=== PATIENT | male | born 1985 | race Caucasian/White ===

== ENCOUNTER 2020-04-06 05:09 | Emergency (ER) | payer BC, MEDICAID ==
[2020-04-06] MEDS ORDERED: KETOROLAC TROMETHAMINE INJ/PF 30 MG/1 ML SDV IV ONE ×2 (05:39→07:43)
[2020-04-06] MEDS ORDERED: METOCLOPRAMIDE HCL INJ/PF 10 MG/2 ML SDV IV ONE (05:39)
[2020-04-06] MEDS ORDERED: NORMAL SALINE 1000 ML 1,000 ML IV ONE ×2 (05:40→07:45)
--- NOTE | 2020-04-06 05:43 | ER Document Report ---
ED General - General TRAVEL OUTSIDE OF THE [place] IN LAST 30 DAYS: No <JANA GOMEZ - Last Filed: 04/06/20 08:07> <JIMMY MANDUJANO - Last Filed: 04/06/20 19:37> - General Stated Complaint: FEVER/HEADACHE/BODY ACHES Time Seen by Provider: 04/06/20 05:29 Primary Care Provider: ABRAHAN ALVARADO MD [Primary Care Provider] - Follow up tomorrow Notes: Patient is a 34-year-old male who comes emergency department for chief complaint of a headache and fever. He states that symptoms started about 2 days ago, he has been taking frequent Tylenol with minimal relief. He reports some vague nausea from the headache but denies vomiting, denies congestion, sore throat, chest pain, abdominal pain, diarrhea. He denies any obvious sick contacts. He denies tick bite. He denies neck stiffness but does have some neck pain along the left shoulder. Denies injury. Denies any recent travel. He denies recreational drug use or ever using IV drugs. He reports infrequent alcohol, denies smoking. He denies any daily medications. (JASONJANA) - Related Data Allergies/Adverse Reactions: No Known Allergies Allergy (Unverified 11/09/11 01:23) Past Medical History - General Information source: Patient - Social History Smoking Status: Never Smoker Frequency of alcohol use: None Drug Abuse: None Lives with: Family Family History: Reviewed & Not Pertinent Pulmonary Medical History: Reports: Hx Asthma Psychiatric Medical History: Reports: Hx Depression - Immunizations Hx Diphtheria, Pertussis, Tetanus Vaccination: Yes <JANA GOMEZ - Last Filed: 04/06/20 08:07> Review of Systems - Review of Systems Constitutional: See HPI EENT: No symptoms reported Cardiovascular: No symptoms reported Respiratory: No symptoms reported Gastrointestinal: No symptoms reported Genitourinary: No symptoms reported Male Genitourinary: No symptoms reported Musculoskeletal: See HPI Skin: No symptoms reported Hematologic/Lymphatic: No symptoms reported Neurological/Psychological: See HPI <JANA GOMEZ - Last Filed: 04/06/20 08:07> Physical Exam <JANA GOMEZ - Last Filed: 04/06/20 08:07> - Vital signs Vitals: Temp Pulse Resp BP Pulse Ox 99.5 F 85 18 111/73 99 04/06/20 05:25 04/06/20 05:25 04/06/20 05:25 04/06/20 05:25 04/06/20 05:25 - Notes Notes: GENERAL: Patient appears restless and in moderate distress HEAD: Normocephalic, atraumatic. EYES: Pupils equal, round, and reactive to light. No photophobia noted. Extraocular movements intact. ENT: Oral mucosa moist, tongue midline. Oropharynx unremarkable. Airway patent. Nares patent, sinuses non-tender, ear canals unremarkable, TM's intact. NECK: Patient with pain with lateral range of motion of the neck to the left although range of motion is still intact. No nuchal rigidity. Supple. Trachea midline. No lymphadenopathy. LUNGS: Clear to auscultation bilaterally, no wheezes, rales, or rhonchi. No respiratory distress. Non-tender chest wall. HEART: Regular rate and rhythm. No murmur ABDOMEN: Soft, non-tender. Non-distended. EXTREMITIES: Moves all 4 extremities spontaneously. No edema, normal radial and dorsalis pedis pulses bilaterally. No cyanosis. BACK: There is tenderness over the left trapezius muscle and minimally at the left paracervical muscle. No cervical, thoracic, lumbar midline tenderness. No saddle anesthesia, normal distal neurovascular exam. Moves all extremities in full range of motion. NEUROLOGICAL: Alert and oriented x3. Normal speech. Cranial nerves II through XII grossly intact. Strength 5/5 in all extremities. SKIN: Warm, dry, normal turgor. No rashes or lesions noted. (JANA GOMEZ) Course - Laboratory Result Diagrams: 04/06/20 06:30 04/06/20 06:30 <JANA GOMEZ - Last Filed: 04/06/20 08:07> - Laboratory Result Diagrams: 04/06/20 06:30 04/06/20 06:30 <JIMMY MANDUJANO - Last Filed: 04/06/20 19:37> - Re-evaluation Re-evalutation: Patient is obviously uncomfortable in moderate distress, reports fevers at home over the past 2 days, reports significant headache. He does not have any neurological deficits, he does not have nuchal rigidity, he is not tachycardic, febrile here, or hypotensive. However patient did take Tylenol prior to arrival reportedly. Evaluation otherwise unremarkable. Chest x-ray reviewed and unremarkable. 04/06/20 On my reevaluation patient's headache is no longer 9 out of 10, now he is saying it is 4-5/10. Patient does not appear so uncomfortable anymore. I am concerned that patient still has a headache after treatment, however he does not have nuchal rigidity. He does appear to be some musculoskeletal component to this as well. I did discuss with Dr. Mello he does not recommend lumbar puncture yet, he recommends additional medications, he did review the patient at bedside. Patient states agreement with plan. 04/06/20 08:08 Introduced at bedside to Franki Mandujano at bedside. (JANA GOMEZ) 04/06/20 09:04 Dr Mello at bedside, IVF continue to infuse. BELLE pain improved, Dr Mello does not advise LP at this time. 04/06/20 09:45 Patient reports modest improvement of headache. Patient will have COVID testing as well as [place] spotted fever testing. Patient will be given a prescription for doxycycline as recommended spotted fever testing is pending at this time. Patient without any meningismus and otherwise nontoxic in appearance. Patient has left trapezius muscle tenderness. The patient presents with headache without signs of [employer] bleed, stroke, or other serious etiology. The patient is neurologically intact. Given the extremely low risk of these diagnoses further testing and evaluation for these possibilities does not appear to be indicated at this time. The patient has been instructed to return if the symptoms worsen or change in any way. 04/06/20 09:[address] Mello who does not feel patient warrants the need for LP at this time. Suspect likely viral etiology and agrees with plan for COVID testing. 04/06/20 09:50 The patient was evaluated during the global Covid 19 pandemic, and that di agnosis was suspected/considered upon their initial presentation. Their evaluation, treatment and testing was consistent with current guidelines for patients who present with complaints or symptoms that may be related to Covid 19. (JIMMY MANDUJANO) - Vital Signs Vital signs: Temp Pulse Resp BP Pulse Ox 98.3 F 84 17 130/63 H 100 04/06/20 10:05 04/06/20 10:05 04/06/20 10:05 04/06/20 10:05 04/06/20 10:05 - Laboratory Laboratory results interpreted by me: 04/06/20 04/06/20 06:30 06:30 WBC 11.8 H Seg Neuts % (Manual) 90 H Lymphocytes % (Manual) 0 L Abs Neuts (Manual) 10.6 H Abs Lymphs (Manual) 0.0 L Sodium 136.6 L Glucose 141 H Alkaline Phosphatase 227 H 04/06/20 09:49 Labs- All tests 24 hr 04/06/20 04/06/20 04/06/20 06:30 06:30 06:30 WBC 11.8 H RBC 4.63 Hgb 13.7 Hct 39.0 MCV 84 MCH 29.5 MCHC 35.0 RDW 12.5 Plt Count 415 Lymph % (Auto) Not Reportable [place] % (Auto) Not Reportable Eos % (Auto) Not Reportable Baso % (Auto) Not Reportable Absolute Neuts (auto) Not Reportable Absolute Lymphs (auto) Not Reportable Absolute Monos (auto) Not Reportable Absolute Eos (auto) Not Reportable Absolute Basos (auto) Not Reportable Total Counted 100 Seg Neutrophils % Not Reportable Seg Neuts % (Manual) 90 H Lymphocytes % (Manual) 0 L Monocytes % (Manual) 7 Eosinophils % (Manual) 1 Basophils % (Manual) 2 Abs Neuts (Manual) 10.6 H Abs Lymphs (Manual) 0.0 L Abs Monocytes (Manual) 0.8 Absolute Eos (Manual) 0.1 Abs Basophils (Manual) 0.2 Toxic Vacuolation PRESENT Platelet Comment ADEQUATE RBC Morph Comment NORMO-CYTIC/CHROMIC Sodium 136.6 L Potassium 4.2 Chloride 102 Carbon Dioxide 24 Anion Gap 11 BUN 14 Creatinine 0.92 Est GFR ( Amer) > 60 Est GFR (MDRD) Non-Af > 60 Glucose 141 H Calcium 9.6 Total Bilirubin 1.3 Direct Bilirubin 0.3 Neonat Total Bilirubin Not Reportable Neonat Direct Bilirubin Not Reportable Neonat Indirect Bili Not Reportable AST 26 ALT 40 Alkaline Phosphatase 227 H Creatine Kinase 65 Total Protein 7.8 Albumin 4.1 (JIMMY MANDUJANO) Discharge <JANA GOMEZ - Last Filed: 04/06/20 08:07> <JIMMY MANDUJANO - Last Filed: 04/06/20 19:37> - Discharge Clinical Impression: Trapezius muscle spasm, Encounter for screening laboratory testing for COVID-19 virus Headache Qualifiers: Headache type: unspecified Headache chronicity pattern: acute headache Intractability: not intractable Qualified Code(s): R51 - Headache Condition: Stable Disposition: HOME, SELF-CARE Instructions: COVID-19 Guidance for Persons Under Investigation, Headache ([facility]), Toradol Injection ([facility]) Additional Instructions: Return immediately for any new or worsening symptoms Followup with your primary care provider, call tomorrow to make a followup appointment Home quarantine according to COVID-19 recommendations Prescriptions: Doxycycline Hyclate 100 mg PO BID #14 tablet.dr Zapien/Acetaminophen/Caffeine [Fioricet (50-325-40 mg) Tablet] 1 - 2 tab PO Q4H PRN #12 each PRN Reason: Naproxen [Naprosyn 250 Nmg Tablet] 1 tab PO BID #14 tablet Forms: Return to Work Referrals: ABRAHAN ALVARADO MD [Primary Care Provider] - Follow up tomorrow
--- NOTE | 2020-04-06 06:13 | RADIOLOGY REPORT (SQ) ---
AP Portable chest: 04/06/2020 5:12 AM CDT History: 34-year old patient with fever, weakness. Comparison: None available Findings: The cardiomediastinal silhouette is normal in size. No pneumothorax is seen. No acute airspace opacities are seen. No discrete pleural effusion is apparent. There are punctate calcified granulomas present. Impression: No acute airspace opacities are seen.
[2020-04-06 06:43] LABS: HEMOGLOBIN 13.7 g/dL (13.5-17.0); MEAN CORPUSCULAR HEMOGLOBIN 29.5 pg (27.0-33.4); MEAN CORPUSCULAR VOLUME 84 fl (80-97); PLATELET COUNT 415 10^3/uL (150-450); RED BLOOD COUNT 4.63 10^6/uL (4.35-5.55); RED CELL DISTRIBUTION WIDTH 12.5 % (11.5-14.0); WHITE BLOOD COUNT 11.8 10^3/uL (4.0-10.5)
[2020-04-06 06:59] LABS: ALBUMIN 4.1 g/dL (3.5-5.0); ALKALINE PHOSPHATASE 227 U/L (38-126); ANION GAP 11 (5-19); ASPARTATE AMINO TRANSFERASE 26 U/L (17-59); BILIRUBIN,DIRECT 0.3 mg/dL (0.0-0.4); BILIRUBIN,TOTAL 1.3 mg/dL (0.2-1.3); BLOOD UREA NITROGEN 14 mg/dL (7-20); CALCIUM 9.6 mg/dL (8.4-10.2); CARBON DIOXIDE 24 mmol/L (22-30); CHLORIDE 102 mmol/L (98-107); GLUCOSE 141 mg/dL (75-110); POTASSIUM 4.2 mmol/L (3.6-5.0); TOTAL PROTEIN 7.8 g/dL (6.3-8.2)
[2020-04-06 07:25] LABS: ABSOLUTE MONOCYTES # (MANUAL) 0.8 10^3/uL (0.1-1.4); BASOPHILS % (MANUAL) 2 % (0-2); EOSINOPHILS % (MANUAL) 1 % (0-6); LYMPHOCYTES % (MANUAL) 0 % (13-45); MONOCYTES % (MANUAL) 7 % (3-13); SEGMENTED NEUTROPHILS % (MAN) 90 % (42-78); TOTAL CELLS COUNTED 100
[2020-04-06 07:27] LABS: PLATELET COMMENT ADEQUATE; RBC MORPHOLOGY COMMENT NORMO-CYTIC/CHROMIC; TOXIC VACUOLATION PRESENT
[2020-04-06] MEDS ORDERED: FENTANYL CITRATE INJ/PF 100 MCG/2 ML AMPUL IV ONE (07:34)
[2020-04-06] MEDS ORDERED: LIDOCAINE 1% INJ-PF (10 MG/ML) 30 ML SDV INJ ONE (07:34)
[2020-04-06] MEDS ORDERED: METHOCARBAMOL INJ/PF 1000 MG/10 ML SDV IV ONE (07:43)
[2020-04-06] MEDS ORDERED: DIPHENHYDRAMINE HCL 50 MG/ML VIAL IV ONE (07:43)
[2020-04-06] MEDS ORDERED: DOXYCYCLINE HYCLATE 100 MG TABLET PO ONE (09:49)
[2020-04-06 10:08] VITALS: BP 130/63
== END 2020-04-06 10:13 | disposition home or self-care (01) ==
LOC: ER 05:09
DX: M62.838 Other muscle spasm (principal); R51 Headache; R50.9 Fever, unspecified; R11.0 Nausea; Z20.828 Contact with and (suspected) exposure to other viral communicable diseases
CPT/HCPCS: 99284; 96361; 96374; 36415; 87040; 82550; 85025; 80053; 86757; 71045; J1200; J2800; J1885; J2765; J7030